=== PATIENT | female | born 1940 | race Hispanic/Latino ===

== ENCOUNTER 2016-12-07 22:45 | Emergency (ER) | payer MEDICARE ==
[2016-12-07 23:01] VITALS: BP 165/113; RESP 16; TEMP 97.6; BMI 26.2
[2016-12-07] MEDS ORDERED: Phenylephrine 0.5% Nasal Spray (15 ml) NS STA (23:11)
--- NOTE | 2016-12-07 23:22 | ED PDOC ---
Arrival/HPI - General Chief Complaint: ENT Problem Time Seen by Provider: 12/07/16 23:03 Historian: Patient - History of Present Illness Narrative History of Present Illness (Text): 12/07/16 23:18 A 76 year old female, whose past medical history includes hypertension, presents to the emergency department complaining of right nare epistaxis prior to arrival. Patient reports epistaxis occurred and she controlled the bleeding for 15-20 minutes. Patient mentions her blood pressure was elevated during episode but has now improved. Also, patient states she had blood work done 1 week ago by her doctor and results came back normal. Patient denies of head trauma or any other complaints. Time/Duration: Prior to Arrival (30 minutes) Symptom Onset: Sudden Symptom Course: Unchanged Activities at Onset: Rest, Light Context: Home Past Medical History - Provider Review Nursing Documentation Reviewed: Yes - Reproductive Menopause: Yes - Cardiac Hx Cardiac Disorders: Yes Hx Hypertension: Yes Other/Comment: palpitation - Pulmonary Hx Respiratory Disorders: No - Neurological Hx Neurological Disorder: No - HEENT Hx HEENT Disorder: No - Renal Hx Renal Disorder: No - Endocrine/Metabolic Hx Endocrine Disorders: No - Hematological/Oncological Hx Blood Disorders: No - Integumentary Hx Dermatological Disorder: No - Musculoskeletal/Rheumatological Hx Musculoskeletal Disorders: No - Gastrointestinal Hx Gastrointestinal Disorders: No - Genitourinary/Gynecological Hx Genitourinary Disorders: No - Psychiatric Hx Psychophysiologic Disorder: No Hx Substance Use: No - Past Surgical History Past Surgical History: Non-Contributing - Surgical History Hx Vascular Surgery: Yes - Anesthesia Hx Anesthesia: No Hx Anesthesia Reactions: No Hx Malignant Hyperthermia: No Family/Social History - Physician Review Nursing Documentation Reviewed: Yes Family/Social History: No Known Family HX Smoking Status: Never Smoked Hx Alcohol Use: Yes Frequency of alcohol use: Socially Hx Substance Use: No Hx Substance Use Treatment: No Allergies/Home Meds Allergies/Adverse Reactions: Allergies No Known Allergies Allergy (Verified 12/07/16 23:01) Home Medications: Home Meds Medication Instructions Recorded Confirmed Losartan [Cozaar] 50 mg PO DAILY 05/25/16 12/07/16 Metoprolol Tartrate [Lopressor] 50 mg PO BID 05/25/16 12/07/16 Review of Systems - Physician Review All systems were reviewed & negative as marked: Yes - Review of Systems Constitutional: absent: Fevers, Night Sweats ENT: Epistaxis (right nare) Respiratory: absent: SOB Gastrointestinal: absent: Abdominal Pain, Nausea, Vomiting Neurological: absent: Headache, Other (head trauma) Physical Exam Vital Signs Reviewed: Yes Vital Signs Temp Pulse Resp BP Pulse Ox 12/07/16 23:25 84 16 98 12/07/16 23:01 97.6 F 89 16 165/113 H 96 12/07/16 23:00 97.6 F 89 16 165/113 H 96 Temperature: Afebrile Blood Pressure: Hypertensive Pulse: Regular Respiratory Rate: Normal Appearance: Positive for: Well-Appearing Pain Distress: None Mental Status: Positive for: Alert and Oriented X 3 - Systems Exam Head: Present: Atraumatic, Normocephalic Pupils: Present: PERRL Extroacular Muscles: Present: EOMI Conjunctiva: Present: Normal Mouth: Present: Moist Mucous Membranes Nose (Internal): Present: Epistaxis (dry blood to right nare). No: No Active Bleeding Neck: Present: Normal Range of Motion Respiratory/Chest: Present: Clear to Auscultation, Good Air Exchange. No: Respiratory Distress, Accessory Muscle Use Cardiovascular: Present: Regular Rate and Rhythm, Normal S1, S2. No: Murmurs Abdomen: Present: Normal Bowel Sounds. No: Tenderness, Distention, Peritoneal Signs Back: Present: Normal Inspection Upper Extremity: Present: Normal Inspection. No: Cyanosis, Edema Lower Extremity: Present: Normal Inspection. No: Edema Neurological: Present: GCS=15, CN II-XII Intact, Speech Normal Skin: Present: Warm, Dry, Normal Color. No: Rashes Psychiatric: Present: Alert, Oriented x 3, Normal Insight, Normal Concentration Medical Decision Making ED Course and Treatment: 12/07/16 23:20 Impression: 76 year old female with epistaxis to right nare. Physical exam shows no active bleeding, dry blood to right nare. Plan: -- Phenylephrine 0.5% -- Reassess and disposition Prior Visits: Notes and results from previous visits were reviewed. Patient was last seen in the emergency department on 05/25/2016 for evaluation of elevated BP. Patient was discharged home. Progress Notes: 12/08/16 01:26 no active bleeding in er. 15 min of bleeding. no indication for lab work. - Medication Orders Current Medication Orders: Discontinued Medications Phenylephrine HCl (Connor-Synephrine 0.5% Nasal [place]) 0 ml NS STAT STA Stop: 12/07/16 23:12 Last Admin: 12/07/16 23:24 Dose: 2 spr - Scribe Statement The provider has reviewed the documentation as recorded by the Eran Roche Provider Scribe Attestation: All medical record entries made by the Scribe were at my direction and personally dictated by me. I have reviewed the chart and agree that the record accurately reflects my personal performance of the history, physical exam, medical decision making, and the department course for this patient. I have also personally directed, reviewed, and agree with the discharge instructions and disposition. Disposition/Present on Arrival - Present on Arrival Any Indicators Present on Arrival: No History of DVT/PE: No History of Uncontrolled Diabetes: No Urinary Catheter: No History of Decub. Ulcer: No History Surgical Site Infection Following: None - Disposition Have Diagnosis and Disposition been Completed?: Yes Diagnosis: Bleeding nose Disposition: HOME/ ROUTINE Disposition Time: 11:30 Condition: STABLE Discharge Instructions (ExitCare): Nosebleed (ED) Additional Instructions: please follow up with your doctor. return to er with worsening symptoms or concerns. Referrals: Suresh Le DO [Staff Provider] - Follow up with primary Forms: [employer] (Paraguayan)
[2016-12-07 23:26] VITALS: PULSE 84; O2SAT 98
== END 2016-12-07 23:26 | disposition home or self-care (01) ==
LOC: ED 22:45
DX: R04.0 Epistaxis (principal)

== ENCOUNTER 2017-06-20 12:50 | Observation (INO) | payer MEDICARE, OTHER ==
--- NOTE | 2017-06-20 13:19 | ED PDOC ---
Arrival/HPI - General Chief Complaint: Palpitations Time Seen by Provider: 06/20/17 12:58 Historian: Patient - History of Present Illness Narrative History of Present Illness (Text): 06/20/17 13:19 Olesya Goel is a 76 year old female, whose past medical history includes hypertension and vascular surgery, who presents to the emergency department complaining of intermittent palpitations since last night. Patient reports throughout her life she has experience 6 episodes like this and has been evaluated by her PMD Dr. Argueta and Dr. Paredes but they never found a reason for these episodes. She notes seeing Dr. Argueta 2 weeks ago. Her symptoms began last night but she decided to wait until the morning to see if it would go away, but it did not and her PMD advised her to come to the emergency department. Patient denies shortness of breath, fever, nausea, vomiting, cough or other complaints. Time/Duration: 24 hours Symptom Onset: Sudden Symptom Course: Unchanged, Intermittent Activities at Onset: Rest Context: Home Past Medical History - Provider Review Nursing Documentation Reviewed: Yes - Infectious Disease Hx of Infectious Diseases: None - Cardiac Hx Cardiac Disorders: Yes Hx Hypertension: Yes Other/Comment: palpitation - Pulmonary Hx Respiratory Disorders: No - Neurological Hx Neurological Disorder: No - HEENT Hx HEENT Disorder: No - Renal Hx Renal Disorder: No - Endocrine/Metabolic Hx Endocrine Disorders: No - Hematological/Oncological Hx Blood Disorders: No - Integumentary Hx Dermatological Disorder: No - Musculoskeletal/Rheumatological Hx Musculoskeletal Disorders: No - Gastrointestinal Hx Gastrointestinal Disorders: No - Genitourinary/Gynecological Hx Genitourinary Disorders: No - Psychiatric Hx Psychophysiologic Disorder: No Hx Substance Use: No - Past Surgical History Past Surgical History: Non-Contributing - Surgical History Hx Vascular Surgery: Yes - Anesthesia Hx Anesthesia: No Hx Anesthesia Reactions: No Hx Malignant Hyperthermia: No Family/Social History - Physician Review Nursing Documentation Reviewed: Yes Family/Social History: No Known Family HX Smoking Status: Never Smoked Hx Alcohol Use: Yes Frequency of alcohol use: Few days per week Hx Substance Use: No Hx Substance Use Treatment: No Allergies/Home Meds Allergies/Adverse Reactions: Allergies No Known Allergies Allergy (Verified 06/20/17 13:11) Home Medications: Home Meds Medication Instructions Recorded Confirmed Losartan [Cozaar] 50 mg PO DAILY 05/25/16 06/20/17 Metoprolol Tartrate [Lopressor] 50 mg PO BID 05/25/16 06/20/17 Review of Systems - Physician Review All systems were reviewed & negative as marked: Yes - Review of Systems Constitutional: absent: Fevers Respiratory: absent: SOB Cardiovascular: Palpitations Physical Exam Vital Signs Reviewed: Yes Vital Signs Temp Pulse Resp BP Pulse Ox 06/20/17 16:36 51 L 12 137/73 97 06/20/17 13:12 97.6 F 55 L 17 191/86 H 98 Temperature: Afebrile Blood Pressure: Hypertensive Pulse: Bradycardic Respiratory Rate: Normal Appearance: Positive for: Well-Appearing, Non-Toxic, Comfortable Pain Distress: None Mental Status: Positive for: Alert and Oriented X 3 - Systems Exam Head: Present: Atraumatic, Normocephalic Pupils: Present: PERRL Extroacular Muscles: Present: EOMI Conjunctiva: Present: Normal Mouth: Present: Moist Mucous Membranes Respiratory/Chest: Present: Clear to Auscultation, Good Air Exchange. No: Respiratory Distress, Accessory Muscle Use Cardiovascular: Present: Regular Rate and Rhythm, Normal S1, S2. No: Murmurs Abdomen: Present: Normal Bowel Sounds. No: Tenderness, Distention, Peritoneal Signs, Rebound, Guarding Neurological: Present: GCS=15, CN II-XII Intact, Speech Normal Skin: Present: Warm, Dry, Normal Color. No: Rashes Psychiatric: Present: Alert, Oriented x 3, Normal Insight, Normal Concentration Medical Decision Making ED Course and Treatment: 06/20/17 Impression: 76 year old female with unremarkable physical exam complaining of palpitations. Plan: -- EKG -- Chest X-ray -- Labs -- Reassess and disposition Progress Notes: EKG: Ordered, reviewed, and independently interpreted the EKG. Rate : 52 BPM Rhythm : sinus jose eduardo cardia Interpretation : Non-specific ST-segment elevations or depressions, no T-wave inversions, normal intervals. 06/20/17 16:[address] Bradley, recommends admission under hospitalist for observation. Requests psychiatric arnp Dr. Palomino for consult. - Lab Interpretations Lab Results: 06/20/17 13:15 06/20/17 13:15 Lab Results 06/20/17 13:15: Sodium 144, Potassium 4.2, Chloride 104, Carbon Dioxide 30, Anion Gap 14, BUN 14, Creatinine 0.8, Est GFR ( Amer) > 60, Est GFR (Non- Af Amer) > 60, Random Glucose 100, Calcium 10.4, Total Bilirubin 0.7, AST 27, ALT 23, Alkaline Phosphatase 73, Lactate Dehydrogenase 516, Total Creatine Kinase 66, Troponin I < 0.01, Total Protein 7.8, Albumin 4.4, Globulin 3.4, Albumin/Globulin Ratio 1.3 06/20/17 13:15: PT 11.6, INR 1.01 06/20/17 13:15: WBC 6.5, RBC 4.51, Hgb 14.6, Hct 43.0, MCV 95.3, MCH 32.4, MCHC 34.0, RDW 13.2, Plt Count 204, MPV 10.5, Gran % 49.8 L, Lymph % (Auto) 37.3 H, [place] % (Auto) 8.6 H, Eos % (Auto) 3.5, Baso % (Auto) 0.8, Gran # 3.25, Lymph # ( Auto) 2.4, [place] # (Auto) 0.6, Eos # (Auto) 0.2, Baso # (Auto) 0.05 I have reviewed the lab results: Yes - RAD Interpretation Radiology Orders: 06/20/17 13:24 CHEST PORTABLE [RAD] Stat Dowel Sander Operator: Radiologist - EKG Interpretation Interpreted by ED Physician: Yes Type: 12 lead EKG - Medication Orders Current Medication Orders: Losartan Potassium (Cozaar) 50 mg PO DAILY CARLOS ENRIQUE Metoprolol Tartrate (Lopressor) 50 mg PO BID CARLOS ENRIQUE - PA / PROJECT MANAGER/DESIGN MANAGER / Resident Statement MD/DO has reviewed & agrees with the documentation as recorded. - Scribe Statement The provider has reviewed the documentation as recorded by the Eran Rodrigues Provider Scribe Attestation: All medical record entries made by the Eran were at my direction and personally dictated by me. I have reviewed the chart and agree that the record accurately reflects my personal performance of the history, physical exam, medical decision making, and the department course for this patient. I have also personally directed, reviewed, and agree with the discharge instructions and disposition. Disposition/Present on Arrival - Present on Arrival Any Indicators Present on Arrival: No History of DVT/PE: No History of Uncontrolled Diabetes: No Urinary Catheter: No History of Decub. Ulcer: No History Surgical Site Infection Following: None - Disposition Have Diagnosis and Disposition been Completed?: Yes Diagnosis: Heart palpitations Disposition: HOSPITALIZED Disposition Time: 17:00 Patient Plan: Observation Patient Problems: Current Active Problems Problem Status Onset Heart palpitations Acute Condition: GOOD
[2017-06-20 13:51] LABS: BASO # 0.05 K/mm3 (0.0-2.0); BASO % 0.8 % (0.0-3.0); EOS # 0.2 (0.0-0.7); EOS % 3.5 % (1.5-5.0); GRAN # 3.25 (1.4-6.5); GRAN % 49.8 % (50.0-68.0); HEMOGLOBIN 14.6 g/dL (12.0-16.0); LYMPH # 2.4 (1.2-3.4); LYMPH % 37.3 % (22.0-35.0); MEAN CELL VOLUME 95.3 fl (80.0-105.0); MEAN CORPUSCULAR HEMOGLOBIN 32.4 pg (25.0-35.0); MEAN PLATELET VOLUME 10.5 fl (7.0-11.0); MONO # 0.6 (0.1-0.6); MONO % 8.6 % (1.0-6.0); RBC 4.51 10^6/uL (3.5-6.1); RED CELL DISTRIBUTION WIDTH 13.2 % (11.5-14.5); WHITE BLOOD COUNT 6.5 10^3/ul (4.5-11.0)
[2017-06-20 13:53] LABS: INR 1.01 (0.93-1.08); PROTHROMBIN TIME 11.6 SECONDS (9.4-12.5)
[2017-06-20 13:59] LABS: ALB/GLOB RATIO 1.3 (1.1-1.8); ALBUMIN 4.4 g/dL (3.0-4.8); ALT/SGPT 23 U/L (7-56); AST/SGOT 27 U/L (14-36); BLOOD UREA NITROGEN 14 mg/dL (7-21); CALCIUM 10.4 mg/dL (8.4-10.5); GFR AFRICAN-AMERICAN > 60; GFR NON-AFRICAN AMERICAN > 60
[2017-06-20 14:09] LABS: TROPONIN I < 0.01 ng/mL
--- NOTE | 2017-06-20 16:19 | RAD ---
HISTORY: palpitations COMPARISON: No prior. FINDINGS: LUNGS: No active pulmonary disease. PLEURA: No significant pleural effusion identified, no pneumothorax apparent. CARDIOVASCULAR: Normal. OSSEOUS STRUCTURES: No significant abnormalities. VISUALIZED UPPER ABDOMEN: Normal. OTHER FINDINGS: None. IMPRESSION: No active disease.
--- NOTE | 2017-06-20 18:19 | CP.PCM.HP ---
<Luis Carlos Kim - Last Filed: 06/20/17 18:28> History of Present Illness - History of Present Illness History of Present Illness: IM H&P for Hospitalist Service CC: Persisting episode of chronic palpitations HPI: This is a 76 yo F with PMH of HTN, chronic palpations, vericose veins s/p removal, and bladder prolapse s/p sling who presents [place] [facility] with complaint of palpitations which began yesterday, and have persisted. Patient called her PMD's office (Dr. Bradley) today, and was instructed to present to [facility] for eval. As per patient, she has been extensively worked up for these palpitations over the years by several physicians, including a ship unloader, with no clear cause identified. Workup includes several attempts with Holter monitor, most recently 2-3 yrs ago as per patient. She states that the episodes usually occur for only a few minutes every day or two, but occasionally persists for more than a day, which is when she presents to her doctor's office or to a hospital. Admits to dizziness intermittently with the palpitations, lightheadedness but not room spinning, not affected by position, not associated with syncope/near-syncope. Denies chest pain, shortness of breath, emesis, nausea, changes in vision, focal weakness, focal paresthesias, loss of balance, dysuria, hematuria, constipation, diarrhea, or fevers/chills. Reports normal PO intake of food and fluids daily, reports compliance with all home meds, and ambulates daily up and down several flights of stairs and through a local park without shortness of breath or difficulty. All other ROS in 12-system review negative. PMH: as above PSH: bilateral LE varicose vein stripping, sling placement for bladder prolapse Social Hx: Lives with , independent in ADLs/IADLs Fam Hx: pt unsure PMD: [facility] Cardio: Dr. Phillip Present on Admission - Present on Admission Any Indicators Present on Admission: No History of DVT/PE: No History of Uncontrolled Diabetes: No Urinary Catheter: No Review of Systems - Review of Systems All systems: reviewed and no additional remarkable complaints except (as per HPI ) Past Patient History - Infectious Disease Hx of Infectious Diseases: None - Past Social History Smoking Status: Never Smoked - CARDIAC Hx Cardiac Disorders: Yes Hx Hypertension: Yes Other/Comment: palpitation - PULMONARY Hx Respiratory Disorders: No - NEUROLOGICAL Hx Neurological Disorder: No - HEENT Hx HEENT Problems: No - RENAL Hx Chronic Kidney Disease: No - ENDOCRINE/METABOLIC Hx Endocrine Disorders: No - HEMATOLOGICAL/ONCOLOGICAL Hx Blood Disorders: No - INTEGUMENTARY Hx Dermatological Problems: No - MUSCULOSKELETAL/RHEUMATOLOGICAL Hx Musculoskeletal Disorders: No - GASTROINTESTINAL Hx Gastrointestinal Disorders: No - GENITOURINARY/GYNECOLOGICAL Hx Genitourinary Disorders: No - PSYCHIATRIC Hx Psychophysiologic Disorder: No Hx Substance Use: No - SURGICAL HISTORY Hx Vascular Surgery: Yes - ANESTHESIA Hx Anesthesia: No Hx Anesthesia Reactions: No Hx Malignant Hyperthermia: No Meds Allergies/Adverse Reactions: Allergies Allergy/AdvReac Type Severity Reaction Status Date / Time No Known Allergies Allergy Verified 06/20/17 18:13 Physical Exam - Constitutional Appears: Well, Non-toxic, No Acute Distress - Head Exam Head Exam: ATRAUMATIC, NORMAL INSPECTION, NORMOCEPHALIC - Eye Exam Eye Exam: EOMI, Normal appearance. absent: Conjunctival injection, Scleral icterus Pupil Exam: absent: Irregular, Unequal - ENT Exam ENT Exam: Mucous Membranes Moist - Neck Exam Neck exam: Positive for: Normal Inspection. Negative for: Lymphadenopathy, Thyromegaly - Respiratory Exam Respiratory Exam: Clear to Auscultation Bilateral, NORMAL BREATHING PATTERN. absent: Accessory Muscle Use, Chest Wall Tenderness, Decreased Breath Sounds, Rhonchi, Wheezes - Cardiovascular Exam Cardiovascular Exam: Bradycardia (intermittently bradycardic on bedside monitor and when timed, HR ranging from 50's to 60's), REGULAR RHYTHM, +S1, +S2. absent : Tachycardia, Irregular Rhythm, JVD, +S4 - GI/Abdominal Exam GI & Abdominal Exam: Normal Bowel Sounds, Soft. absent: Distended, Firm, Mass, Rigid, Tenderness - Extremities Exam Extremities exam: Positive for: normal capillary refill, normal inspection, pedal pulses present. Negative for: calf tenderness, joint swelling, pedal edema, tenderness - Neurological Exam Neurological exam: Alert, Oriented x3 - Psychiatric Exam Psychiatric exam: Normal Affect, Normal Mood - Skin Skin Exam: Dry, Intact, Normal Color, Warm Results - Vital Signs Recent Vital Signs: Last Vital Signs Temp 97.6 F 06/20/17 13:12 Pulse 51 L 06/20/17 16:36 Resp 12 06/20/17 16:36 BP 137/73 06/20/17 16:36 Pulse Ox 97 06/20/17 16:36 - Labs Result Diagrams: 06/20/17 13:15 06/20/17 13:15 Labs: Laboratory Results - last 24 hr 06/20/17 06/20/17 06/20/17 13:15 13:15 13:15 WBC 6.5 RBC 4.51 Hgb 14.6 Hct 43.0 MCV 95.3 MCH 32.4 MCHC 34.0 RDW 13.2 Plt Count 204 MPV 10.5 Gran % 49.8 L Lymph % (Auto) 37.3 H [place] % (Auto) 8.6 H Eos % (Auto) 3.5 Baso % (Auto) 0.8 Gran # 3.25 Lymph # (Auto) 2.4 [place] # (Auto) 0.6 Eos # (Auto) 0.2 Baso # (Auto) 0.05 PT 11.6 INR 1.01 Sodium 144 Potassium 4.2 Chloride 104 Carbon Dioxide 30 Anion Gap 14 BUN 14 Creatinine 0.8 Est GFR ( Amer) > 60 Est GFR (Non-Af Amer) > 60 Random Glucose 100 Calcium 10.4 Total Bilirubin 0.7 AST 27 ALT 23 Alkaline Phosphatase 73 Lactate Dehydrogenase 516 Total Creatine Kinase 66 Troponin I < 0.01 Total Protein 7.8 Albumin 4.4 Globulin 3.4 Albumin/Globulin Ratio 1.3 Assessment & Plan - Assessment and Plan (Free Text) Assessment: This is a 76 yo F with PMH of HTN, chronic palpations, vericose veins s/p removal, and bladder prolapse s/p sling who presents [place] [facility] with complaint of palpitations x2 days, admitted for ACS rule-out. Plan: 1) Palpitations -ACS vs anxiety -DAX score: -sinus jose eduardo on ekg in ED, fluctuates between high 50's-low 60's on bedside monitor, repeat EKG in AM -Trop x1 negative in ED, will repeat trop in AM -Hx extensive workup for palpitations, including multiple trials of Holter monitor, all workup negative as per pt -Cardio (Kenji) consulted, appreciate all recs -continue home Metoprolol and Losartan 2) HTN -SBP 140's-190's in ED, pt reports similar occurrences in physicians' offices -likely component of white-coat HTN/anxiety -reports home SBP 130's-140's -continue home losartan, if elevates abruptly can give Ativan and reassess Dispo: Tele obs, pending repeat trop/EKG, pending Cardio eval, likely d/c tomorrow FEN: Heart-healthy Access: Peripheral IV Consults: Cardio Ppx: Protonix for GI, SCDs for DVT Patient seen, reviewed, and discussed with attending, Dr. Dawson. Decision To Admit - Pt Status Changed To: Hospital Disposition Of: Observation - . Bed Request Type: Telemetry <Kane Dawson - Last Filed: 06/21/17 13:59> Results - Vital Signs Recent Vital Signs: Last Vital Signs Temp 97.9 F 06/21/17 05:32 Pulse 81 06/21/17 10:00 Resp 20 06/21/17 05:32 BP 149/82 06/21/17 09:57 Pulse Ox 95 06/21/17 05:32 - Labs Result Diagrams: 06/21/17 06:30 06/21/17 06:30 Labs: Laboratory Results - last 24 hr 06/21/17 06/21/17 06:30 06:30 WBC 4.8 D RBC 4.29 Hgb 13.6 Hct 40.7 MCV 94.9 MCH 31.7 MCHC 33.4 RDW 13.4 Plt Count 172 MPV 10.6 Gran % 47.4 L Lymph % (Auto) 37.9 H [place] % (Auto) 10.4 H Eos % (Auto) 3.9 Baso % (Auto) 0.4 Gran # 2.29 Lymph # (Auto) 1.8 [place] # (Auto) 0.5 Eos # (Auto) 0.2 Baso # (Auto) 0.02 Sodium 142 Potassium 4.1 Chloride 105 Carbon Dioxide 29 Anion Gap 13 BUN 12 Creatinine 0.7 Est GFR ( Amer) > 60 Est GFR (Non-Af Amer) > 60 Random Glucose 86 Calcium 10.0 Phosphorus 3.9 Magnesium 1.9 Troponin I < 0.01 Attending/Attestation - Attestation I have personally seen and examined this patient.: Yes I have fully participated in the care of the patient.: Yes I have reviewed all pertinent clinical information: Yes Notes (Text): 06/21/17 13:58 Patient was seen and examined with medical records auditor. Agreed with assessment and plan. This is a 76 yo F with PMH of HTN, chronic palpations, vericose veins s/p removal, and bladder prolapse s/p sling who presents [place] [facility] with complaint of palpitations x2 days, Patient is feeling better.We will monitor patient in telemetry.We will check TSH level.We will get cardiology consult. Management plan was discussed in detail with patient. Education was provided.
--- NOTE | 2017-06-20 18:28 | CARD ---
APPROVED REPORT EKG Measurement Heart [id number] <Conclusion> Sinus bradycardia ST abnormality, possible digitalis effect Abnormal ECG
[2017-06-20 19:51] VITALS: BMI 24.7
[2017-06-20] MEDS ORDERED: Influenza Vaccine 60 mcg/0.5 mL SYR (4YR UP) IM ONE (19:51)
[2017-06-20] MEDS ORDERED: Pneumococcal 23-Valent Vaccine IM ONE (19:51)
[2017-06-21 05:33] VITALS: O2SAT 95
[2017-06-21] MEDS ORDERED: Pantoprazole 20 mg EC Tab PO SCH (06:00)
[2017-06-21 07:01] LABS: BASO # 0.02 K/mm3 (0.0-2.0); BASO % 0.4 % (0.0-3.0); EOS # 0.2 (0.0-0.7); EOS % 3.9 % (1.5-5.0); GRAN # 2.29 (1.4-6.5); GRAN % 47.4 % (50.0-68.0); HEMOGLOBIN 13.6 g/dL (12.0-16.0); LYMPH # 1.8 (1.2-3.4); LYMPH % 37.9 % (22.0-35.0); MEAN CELL VOLUME 94.9 fl (80.0-105.0); MEAN CORPUSCULAR HEMOGLOBIN 31.7 pg (25.0-35.0); MEAN CORPUSCULAR HGB CONC 33.4 g/dl (31.0-37.0); MEAN PLATELET VOLUME 10.6 fl (7.0-11.0); MONO # 0.5 (0.1-0.6); MONO % 10.4 % (1.0-6.0); RBC 4.29 10^6/uL (3.5-6.1); RED CELL DISTRIBUTION WIDTH 13.4 % (11.5-14.5); WHITE BLOOD COUNT 4.8 10^3/ul (4.5-11.0)
[2017-06-21 07:12] LABS: BLOOD UREA NITROGEN 12 mg/dL (7-21); GFR AFRICAN-AMERICAN > 60; GFR NON-AFRICAN AMERICAN > 60; MAGNESIUM 1.9 mg/dL (1.7-2.2)
[2017-06-21 07:17] LABS: TROPONIN I < 0.01 ng/mL
[2017-06-21 14:22] VITALS: BP 128/81; PULSE 62; RESP 18; TEMP 97.7
--- NOTE | 2017-06-21 20:41 | CON ---
DATE: 06/21/2017 REASON FOR CONSULTATION: Palpitations, hypertension, bradycardia. HISTORY OF PRESENT ILLNESS: This is a 76-year-old woman admitted yesterday to the emergency room with palpitations, described as sense of rapid heart beating, which is very bothersome, it is a chronic complaint, which has been evaluated over the years. She does not experience syncope, presyncope or vertigo. Occasionally she feels lightheaded when she has palpitations. There is no chest pain, shortness of breath, orthopnea, PND, edema, claudication, fever, chills, cough, sputum production or hemoptysis, abdominal pain, nausea, vomiting, diarrhea, constipation, or melena. PAST MEDICAL HISTORY: Notable for chronic palpitations. She has had evaluations for this in the past. There is history of hypertension, varicose veins with vein stripping and a bladder suspension procedure. There is no history of rheumatic fever, myocardial infarction, coronary artery disease, angina, arrhythmia, diabetes, stroke, TIA, gout, or hyperlipidemia. MEDICATIONS: At the time of admission include losartan 50 mg daily, metoprolol 50 mg b.i.d. ALLERGIES: THERE ARE NO MEDICATION ALLERGIES. SOCIAL HISTORY: She lives at home. She is ambulatory. She does not smoke. She does not drink significantly. FAMILY HISTORY: Not available. REVIEW OF SYSTEMS: A 10-point review of systems otherwise unremarkable except as noted above. PHYSICAL EXAMINATION: GENERAL: She is a well-developed woman, in no acute distress, sitting on her bed on telemetry. VITAL SIGNS: She is in sinus bradycardia at 47-52 beats per minute. She is afebrile. Blood pressure 146/79, respirations 16-20, and O2 sat 95%-96% on room air. HEENT: Reveals no neck vein distension, thyromegaly, or carotid bruits. Mucous membranes are moist. Conjunctivae pink. NECK: Supple. LUNGS: Lungs paredes clear. HEART: Revealed normal first and second heart sounds. No murmur, gallop, rub or click. ABDOMEN: Unremarkable. Bowel sounds are present. No mass, organomegaly, tenderness, rebound, guarding, CVA tenderness, or palpable abdominal aortic aneurysm. EXTREMITIES: Revealed no cyanosis, clubbing or edema. NEUROLOGICAL: She was awake, alert and oriented. SKIN: Warm and dry. No rash or cellulitis. PSYCHIATRIC: Normal as to mood and affect. LABORATORY AND IMAGING: A portable chest x-ray revealed no active disease. EKG demonstrates sinus bradycardia at 52 beats per minute, mild non-specific ST-T wave changes. CBC is unremarkable. PT and INR unremarkable. Comprehensive metabolic panel, unremarkable. Two troponin's are negative. TSH is normal. IMPRESSION: Olesya Goel is a 76-year-old woman with chronic palpitations, which are intermittent. She is on metoprolol with appropriate sinus bradycardia, currently in the 50s, without symptoms. RECOMMENDATION: At this point, I would recommend outpatient evaluation. She follows in our office with Dr. Phillip. We can consider an event recorder or an implantable loop recorder to help find the cause for her episodic palpitations. But she has not had recent echocardiography or stress testing. This will be arranged on an outpatient basis. She will keep us informed of her symptoms. Zach Licona MD MTDDeion
--- NOTE | 2017-06-21 22:33 | CARD ---
APPROVED REPORT EKG Measurement Heart [id number] IN [id number] <Conclusion> Sinus bradycardia Otherwise normal ECG
--- NOTE | 2017-06-23 18:11 | CP.PCM.DIS ---
<Maycol Alvarez - Last Filed: 06/23/17 18:06> Provider - Provider Date of Admission: 06/20/17 16:55 Attending physician: Kane Dawson MD Primary care physician: Kevin Bradley MD Consults: Cardio: Anilffershai Time Spent in preparation of Discharge (in minutes): 41 Hospital Course - Lab Results Lab Results: Most Recent Lab Values WBC 4.8 10^3/ul (4.5-11.0) D 06/21/17 06:30 RBC 4.29 10^6/uL (3.5-6.1) 06/21/17 06:30 Hgb 13.6 g/dL (12.0-16.0) 06/21/17 06:30 Hct 40.7 % (36.0-48.0) 06/21/17 06:30 MCV 94.9 fl (80.0-105.0) 06/21/17 06:30 MCH 31.7 pg (25.0-35.0) 06/21/17 06:30 MCHC 33.4 g/dl (31.0-37.0) 06/21/17 06:30 RDW 13.4 % (11.5-14.5) 06/21/17 06:30 Plt Count 172 10^3/uL (120.0-450.0) 06/21/17 06:30 MPV 10.6 fl (7.0-11.0) 06/21/17 06:30 Gran % 47.4 % (50.0-68.0) L 06/21/17 06:30 Lymph % (Auto) 37.9 % (22.0-35.0) H 06/21/17 06:30 Rolette % (Auto) 10.4 % (1.0-6.0) H 06/21/17 06:30 Eos % (Auto) 3.9 % (1.5-5.0) 06/21/17 06:30 Baso % (Auto) 0.4 % (0.0-3.0) 06/21/17 06:30 Gran # 2.29 (1.4-6.5) 06/21/17 06:30 Lymph # (Auto) 1.8 (1.2-3.4) 06/21/17 06:30 Rolette # (Auto) 0.5 (0.1-0.6) 06/21/17 06:30 Eos # (Auto) 0.2 (0.0-0.7) 06/21/17 06:30 Baso # (Auto) 0.02 K/mm3 (0.0-2.0) 06/21/17 06:30 PT 11.6 SECONDS (9.4-12.5) 06/20/17 13:15 INR 1.01 (0.93-1.08) 06/20/17 13:15 Sodium 142 mmol/L (132-148) 06/21/17 06:30 Potassium 4.1 mmol/L (3.6-5.0) 06/21/17 06:30 Chloride 105 mmol/L (98-107) 06/21/17 06:30 Carbon Dioxide 29 mmol/L (21-33) 06/21/17 06:30 Anion Gap 13 (10-20) 06/21/17 06:30 BUN 12 mg/dL (7-21) 06/21/17 06:30 Creatinine 0.7 mg/dl (0.7-1.2) 06/21/17 06:30 Est GFR ( Amer) > 60 06/21/17 06:30 Est GFR (Non-Af Amer) > 60 06/21/17 06:30 Random Glucose 86 mg/dL (70-110) 06/21/17 06:30 Calcium 10.0 mg/dL (8.4-10.5) 06/21/17 06:30 Phosphorus 3.9 mg/dL (2.5-4.5) 06/21/17 06:30 Magnesium 1.9 mg/dL (1.7-2.2) 06/21/17 06:30 Total Bilirubin 0.7 mg/dL (0.2-1.3) 06/20/17 13:15 AST 27 U/L (14-36) 06/20/17 13:15 ALT 23 U/L (7-56) 06/20/17 13:15 Alkaline Phosphatase 73 U/L (38-126) 06/20/17 13:15 Lactate Dehydrogenase 516 U/L (333-699) 06/20/17 13:15 Total Creatine Kinase 66 U/L (35-230) 06/20/17 13:15 Troponin I < 0.01 ng/mL 06/21/17 06:30 Total Protein 7.8 g/dL (5.8-8.3) 06/20/17 13:15 Albumin 4.4 g/dL (3.0-4.8) 06/20/17 13:15 Globulin 3.4 gm/dL 06/20/17 13:15 Albumin/Globulin Ratio 1.3 (1.1-1.8) 06/20/17 13:15 TSH 3rd Generation 3.06 mIU/mL (0.46-4.68) 06/20/17 13:15 - Hospital Course Hospital Course: 76 year old female with a past medical history significant for HTN, chronic palpations, vericose veins s/p removal, and bladder prolapse s/p sling who presented with palpitations for 48 hour. An EKG showed sinus bradycardia. Troponins were negative. Home metoprolol and cozaar were started. Cardiology was consulted who recommended that patient have outpatient cardio follow up and workup including echo and stress testing. Patient remained HDS and was discharged on 06/21/17 with instructions to follow up with cardiology for further workup. - Date & Time of H&P Date of H&P: 06/20/17 Time of H&P: 18:07 Discharge Exam - Head Exam Head Exam: ATRAUMATIC, NORMAL INSPECTION, NORMOCEPHALIC - Eye Exam Eye Exam: EOMI, Normal appearance, PERRL Pupil Exam: NORMAL ACCOMODATION, PERRL - ENT Exam ENT Exam: Mucous Membranes Moist - Neck Exam Neck exam: Normal Inspection - Respiratory Exam Respiratory Exam: Clear to PA & Lateral, NORMAL BREATHING PATTERN, UNREMARKABLE - Cardiovascular Exam Cardiovascular Exam: REGULAR RHYTHM - GI/Abdominal Exam GI & Abdominal Exam: Normal Bowel Sounds, Unremarkable - Extremities Exam Extremities exam: normal inspection - Back Exam Back exam: NORMAL INSPECTION - Neurological Exam Neurological exam: Alert, CN II-XII Intact, Normal Gait, Oriented x3, Reflexes Normal - Psychiatric Exam Psychiatric exam: Normal Affect, Normal Mood - Skin Skin Exam: Dry, Intact, Normal Color, Warm Discharge Plan - Follow Up Plan Condition: GOOD Disposition: HOME/ ROUTINE Instructions: Heart Healthy Diet, Palpitations (DC) Additional Instructions: Please follow up with your primary care doctor and Dr. Phillip within one week Please take all medications as prescribed with noted hold parameters on your Metoprolol If your symptoms should worsen or persist, please seek emergency medical attention Referrals: Abiel Phillip MD [Staff Provider] - Kevin Bradley MD [Primary Care Provider] - <aKne Dawson - Last Filed: 06/24/17 11:45> Provider - Provider Date of Admission: 06/20/17 16:55 Attending physician: Kane Dawson MD Primary care physician: Kevin Bradley MD Hospital Course - Lab Results Lab Results: Most Recent Lab Values WBC 4.8 10^3/ul (4.5-11.0) D 06/21/17 06:30 RBC 4.29 10^6/uL (3.5-6.1) 06/21/17 06:30 Hgb 13.6 g/dL (12.0-16.0) 06/21/17 06:30 Hct 40.7 % (36.0-48.0) 06/21/17 06:30 MCV 94.9 fl (80.0-105.0) 06/21/17 06:30 MCH 31.7 pg (25.0-35.0) 06/21/17 06:30 MCHC 33.4 g/dl (31.0-37.0) 06/21/17 06:30 RDW 13.4 % (11.5-14.5) 06/21/17 06:30 Plt Count 172 10^3/uL (120.0-450.0) 06/21/17 06:30 MPV 10.6 fl (7.0-11.0) 06/21/17 06:30 Gran % 47.4 % (50.0-68.0) L 06/21/17 06:30 Lymph % (Auto) 37.9 % (22.0-35.0) H 06/21/17 06:30 Rolette % (Auto) 10.4 % (1.0-6.0) H 06/21/17 06:30 Eos % (Auto) 3.9 % (1.5-5.0) 06/21/17 06:30 Baso % (Auto) 0.4 % (0.0-3.0) 06/21/17 06:30 Gran # 2.29 (1.4-6.5) 06/21/17 06:30 Lymph # (Auto) 1.8 (1.2-3.4) 06/21/17 06:30 Rolette # (Auto) 0.5 (0.1-0.6) 06/21/17 06:30 Eos # (Auto) 0.2 (0.0-0.7) 06/21/17 06:30 Baso # (Auto) 0.02 K/mm3 (0.0-2.0) 06/21/17 06:30 PT 11.6 SECONDS (9.4-12.5) 06/20/17 13:15 INR 1.01 (0.93-1.08) 06/20/17 13:15 Sodium 142 mmol/L (132-148) 06/21/17 06:30 Potassium 4.1 mmol/L (3.6-5.0) 06/21/17 06:30 Chloride 105 mmol/L (98-107) 06/21/17 06:30 Carbon Dioxide 29 mmol/L (21-33) 06/21/17 06:30 Anion Gap 13 (10-20) 06/21/17 06:30 BUN 12 mg/dL (7-21) 06/21/17 06:30 Creatinine 0.7 mg/dl (0.7-1.2) 06/21/17 06:30 Est GFR ( Amer) > 60 06/21/17 06:30 Est GFR (Non-Af Amer) > 60 06/21/17 06:30 Random Glucose 86 mg/dL (70-110) 06/21/17 06:30 Calcium 10.0 mg/dL (8.4-10.5) 06/21/17 06:30 Phosphorus 3.9 mg/dL (2.5-4.5) 06/21/17 06:30 Magnesium 1.9 mg/dL (1.7-2.2) 06/21/17 06:30 Total Bilirubin 0.7 mg/dL (0.2-1.3) 06/20/17 13:15 AST 27 U/L (14-36) 06/20/17 13:15 ALT 23 U/L (7-56) 06/20/17 13:15 Alkaline Phosphatase 73 U/L (38-126) 06/20/17 13:15 Lactate Dehydrogenase 516 U/L (333-699) 06/20/17 13:15 Total Creatine Kinase 66 U/L (35-230) 06/20/17 13:15 Troponin I < 0.01 ng/mL 06/21/17 06:30 Total Protein 7.8 g/dL (5.8-8.3) 06/20/17 13:15 Albumin 4.4 g/dL (3.0-4.8) 06/20/17 13:15 Globulin 3.4 gm/dL 06/20/17 13:15 Albumin/Globulin Ratio 1.3 (1.1-1.8) 06/20/17 13:15 TSH 3rd Generation 3.06 mIU/mL (0.46-4.68) 06/20/17 13:15 Attending/Attestation - Attestation I have personally seen and examined this patient.: Yes I have fully participated in the care of the patient.: Yes I have reviewed all pertinent clinical information, including history, physical exam and plan: Yes Notes (Text): 06/24/17 11:39 Medical record note made by the resident after discussion with my direction and input after the patient was personally seen and examined by me. I have reviewed the chart and agree that the record accurately reflects by personal performance of the history, physical exam, data review, and medical decision-making, in the course for the patient. I have also personally directed the plan of care. 76 yo F with PMH of HTN, chronic palpations, vericose veins s/p removal, and bladder prolapse s/p sling who [place] [facility] [place] of [place] x2 days, Patient was monitored in telemetry, she remained stable.TSH level was normal.Patient was evaluated by cardiology, and no further inpatient work up was recommended.She will be discharged home and will follow up with PCP and cardiology. Management plan was discussed in detail with patient. Education was provided.
== END 2017-06-21 15:05 | disposition home or self-care (01) ==
LOC: ED 12:50 → ERH 16:55 → 3RSO 19:01
PROVIDERS: ADMIT Internal Medicine; ATTEND Internal Medicine
DX: R00.2 Palpitations (principal); I10 Essential (primary) hypertension; R00.1 Bradycardia, unspecified; N81.10 Cystocele, unspecified
CPT/HCPCS: 36415; 71045; 80048; 80053; 82550; 83615; 83735; 84100; 84443; 84484; 85025; 85610; 93005; 99285; G0378